=== PATIENT | male | born 1995 | race Caucasian/White ===

== ENCOUNTER 2018-03-03 19:56 | Emergency (ER) | payer BC ==
[2018-03-03] MEDS ORDERED: DIPHENHYDRAMINE HCL 50 MG/ML VIAL IV ONE (22:18)
[2018-03-03] MEDS ORDERED: METHYLPREDNISOLONE INJ 125 MG/2 ML SDV IV ONE (22:18)
[2018-03-03] MEDS ORDERED: CEFTRIAXONE 1 GM/D5W RTU 1 GM/50 ML RTUPB IV ONE (22:18)
--- NOTE | 2018-03-03 22:23 | ER Document Report ---
HPI - HPI Pain Level: 3 Notes: Patient is a 22-year-old male no significant past medical history presents to the ED complaining of left forearm swelling, redness, pain and occasional itching 2-3 days with swelling in the hand as well. 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 He has not noticed any abscess or purulent discharge. He has not noticed any red streaks. He has tried some Benadryl which seemed to help initially, but the swelling worsened the next morning. Denies any drug allergies. Denies any IV drug use or smoking. Denies any headache, fever, neck pain, URI, sore throat, chest pain, palpitations, syncope, cough, shortness of breath, wheeze, dyspnea, abdominal pain, nausea/vomiting/diarrhea, urinary retention, dysuria, hematuria, loss of control of bowel or bladder, numbness/tingling, saddle anesthesia, muscle paralysis/weakness. - ROS Systems Reviewed and Negative: Yes All other systems reviewed and negative - CONSTITUTIONAL Constitutional: DENIES: Fever, Chills - MUSCULOSKELETAL Musculoskeletal: REPORTS: Extremity pain Past Medical History - Social History Smoking Status: Never Smoker Chew tobacco use (# tins/day): No Frequency of alcohol use: None Drug Abuse: None Family History: Reviewed & Not Pertinent Patient has suicidal ideation: No Patient has homicidal ideation: No Renal/ Medical History: Denies: Hx Peritoneal Dialysis Past Surgical History: Reports: Hx Tonsillectomy Vertical Provider Document - CONSTITUTIONAL Agree With Documented VS: Yes Notes: PHYSICAL EXAMINATION: GENERAL: Well-appearing, well-nourished and in no acute distress. LUNGS: Breath sounds clear to auscultation bilaterally and equal. No wheezes rales or rhonchi. HEART: Regular rate and rhythm without murmurs, rubs, gallops. Musculoskeletal: Left UE: FROM to passive/active. Strength 5+/5. N/V intact distal. No bony tenderness. Extremities: No cyanosis, clubbing, or edema b/l. Peripheral pulses 2+. Capillary refill less than 3 seconds. NEUROLOGICAL: Cranial nerves grossly intact. Normal speech, normal gait. Normal sensory, motor exams PSYCH: Normal mood, normal affect. SKIN: Left forearm: extensive erythema, swelling, warmth, and mild indurated tissue w/o abscess. Left hand also has swelling, erythema, and warmth. + mild tenderness to palp. - INFECTION CONTROL TRAVEL OUTSIDE OF THE [place] IN LAST 30 DAYS: No Course - Re-evaluation Re-evalutation: 03/03/18 22:22 Dr. Jaeger was consulted who also eval'd the patient and recommended labs, IV meds. Pending CBC, we will either discharge home or admit. No fever, tachycardia, tachypnea, or hypoxia otherwise. Non-toxic appearing. He will need to f/u tomorrow with the ED if he is discharged home. 03/04/18 00:21 Pt had mildly elevated WBC. Consulted Dr. Hernandez, hospitalist, who eval'd the patient. He recommends that we treat as an outpatient first with Bactrim, no need for Keflex addition. Strict return precautions. Patient is an afebrile, well-hydrated, 22-year-old male who presents to the ED with cellulitis to his left forearm. Vitals are acceptable. PE is otherwise unremarkable for any neurovascular compress, obvious tendon/ligament rupture, obvious fracture/dislocation, compartment syndrome. CBC showed a mildly elevated white count at 12.1. CMP unremarkable. Blood cultures were obtained. Patient was given IV Rocephin as well as Benadryl and site Medrol. Patient given first dose of Bactrim p.o. today. No other labs or imaging warranted at this time based on H&P. Conservative measures otherwise for symptoms. Take Bactrim as directed. Recheck in the ED on Wednesday. Recheck again with your PCM on Wednesday. Return to the ED with any worsening/concerning symptoms otherwise as reviewed discharge. Patient and mother are in agreement. - Vital Signs Vital signs: Temp Pulse Resp BP Pulse Ox 98.9 F 81 16 147/91 H 97 03/03/18 20:14 03/03/18 20:14 03/03/18 20:14 03/03/18 20:14 03/03/18 20:14 - Laboratory Result Diagrams: 03/03/18 22:40 03/03/18 22:40 Discharge - Discharge Clinical Impression: Cellulitis of left forearm Condition: Stable Disposition: HOME, SELF-CARE Instructions: Cellulitis ([facility]) Additional Instructions: Keep the skin clean Wash with soap and water Tylenol/ibuprofen if needed Triple antibiotic ointment daily for any break in the skin Take medication as directed Monitor for any worsening symptoms Recheck with your PCM on Wednesday. recheck in ED on Wednesday. Return to the ED with any worsening symptoms and/or development of fever, headache, chest pain, palpitations, syncope, shortness of breath, trouble breathing, abdominal pain, n/v/d, abscess, purulent discharge, red streaks, worsening swelling, or other worsening symptoms that are concerning to you. Prescriptions: Sulfamethoxazole/Trimethoprim [Bactrim Ds Tablet] 1 each PO BID #20 tablet Forms: Elevated Blood Pressure Referrals: medical, john [Other] - 03/07/18
[2018-03-03 23:09] LABS: ABSOLUTE BASOPHILS # (AUTO) 0.1 10^3/uL (0.0-0.2); ABSOLUTE EOSINOPHILS # (AUTO) 0.3 10^3/uL (0.0-0.6); ABSOLUTE LYMPHOCYTES (AUTO) 2.9 10^3/uL (0.5-4.7); ABSOLUTE MONOCYTES (AUTO) 0.5 10^3/uL (0.1-1.4); ABSOLUTE NEUT (AUTO) 8.5 10^3/uL (1.7-8.2); BASOPHILS % (AUTO) 0.5 % (0-2); EOSINOPHILS % (AUTO) 2.1 % (0-6); HEMATOCRIT 44.4 % (37.9-51.0); HEMOGLOBIN 15.4 g/dL (13.5-17.0); LYMPHOCYTES % (AUTO) 23.5 % (13-45); MEAN CORPUSCULAR HEMOGLOBIN 29.9 pg (27.0-33.4); MEAN CORPUSCULAR HGB CONC 34.8 g/dL (32.0-36.0); MEAN CORPUSCULAR VOLUME 86 fl (80-97); MONOCYTES % (AUTO) 4.2 % (3-13); PLATELET COUNT 287 10^3/uL (150-450); RED BLOOD COUNT 5.17 10^6/uL (4.35-5.55); RED CELL DISTRIBUTION WIDTH 12.8 % (11.5-14.0); SEGMENTED NEUTROPHILS % (AUTO) 69.7 % (42-78); TOTAL CELLS COUNTED % (AUTO) 100 %; WHITE BLOOD COUNT 12.1 10^3/uL (4.0-10.5)
[2018-03-03 23:16] LABS: ALANINE AMINOTRANSFERASE 33 U/L (21-72); ALBUMIN 4.4 g/dL (3.5-5.0); ALKALINE PHOSPHATASE 57 U/L (38-126); ANION GAP 12 (5-19); ASPARTATE AMINO TRANSFERASE 33 U/L (17-59); BILIRUBIN,DIRECT 0.4 mg/dL (0.0-0.4); BILIRUBIN,TOTAL 0.5 mg/dL (0.2-1.3); BLOOD UREA NITROGEN 12 mg/dL (7-20); CALCIUM 9.6 mg/dL (8.4-10.2); CARBON DIOXIDE 23 mmol/L (22-30); CHLORIDE 106 mmol/L (98-107); GLUCOSE 90 mg/dL (75-110); POTASSIUM 4.2 mmol/L (3.6-5.0); SODIUM 140.7 mmol/L (137-145); TOTAL PROTEIN 6.9 g/dL (6.3-8.2)
[2018-03-04] MEDS ORDERED: CLINDAMYCIN HCL 150 MG CAPSULE PO ONE (00:18)
[2018-03-04] MEDS ORDERED: SULFAMETHOXAZOLE/TRIMETHOPRIM 800-160 MG TABLET PO ONE (00:21)
[2018-03-04 00:56] VITALS: BP 145/85
== END 2018-03-04 00:54 | disposition home or self-care (01) ==
LOC: ER 19:56
DX: L03.114 Cellulitis of left upper limb (principal)
CPT/HCPCS: 99283; 96375; 96365; 36415; 87040; 85025; 80053; J1200; J2930; J0696